=== PATIENT | female | born 1975 | race Caucasian/White ===

== ENCOUNTER 2017-07-30 12:07 | Emergency (ER) | payer BC, MEDICAID, OTHER ==
[~2017-07-30] VITALS: Ht 152.4 cm; Wt 69.5 kg
[2017-07-30 12:18] VITALS: Ht 152.4 cm; Wt 69.5 kg
[2017-07-30] MEDS ORDERED: ONDANSETRON (ODT) 4 MG TAB ODT STA (13:34)
[2017-07-30] MEDS ORDERED: IBUPROFEN 800 MG TAB PO ONE (14:00)
--- NOTE | 2017-07-30 14:46 | ERD ---
ER Documentation Chief Complaint Chief Complaint ABD PAIN X 5 DAYS WITH N/V HPI This is a 42-year-old female who presents the emergency department today complaining of lower pelvic pain and pressure and pain with urination. Denies any fevers or chills. States this is been going on for the past 5 days. Denies any vomiting but states she has nausea states she has also been having difficulty sleeping for the past week and she is unsure why. Denies any vaginal bleeding, vaginal discharge. ROS All systems reviewed and are negative except as per history of present illness. Medications Home Meds Active Scripts Ondansetron Hcl* (Zofran*) 4 Mg Tablet, 4 MG PO Q6H for NAUSEA AND/OR VOMITING, #30 TAB Prov:MARIA TERESA RAYA PA-C 07/30/17 Diphenhydramine Hcl* (Benadryl*) 25 Mg Cap, 25 MG PO Q6, #30 CAP Prov:MARIA TERESA RAYA PA-C 07/30/17 Ibuprofen* (Motrin*) 600 Mg Tab, 600 MG PO Q6, #30 TAB Prov:MARIA TERESA RAYA PA-C 07/30/17 Cephalexin* (Keflex*) 500 Mg Capsule, 500 MG PO QID for 7 Days, CAP Prov:MARIA TERESA RAYA PA-C 07/30/17 Reported Medications [None] No Conflict Check 01/22/11 Allergies Allergies: Coded Allergies: No Known Allergies (Verified Allergy, Mild, 04/05/13) Penicillins (Verified Allergy, Mild, 01/22/11) PMhx/Soc History of Surgery: Yes (C SECTION, 2004) Anesthesia Reaction: No Hx Neurological Disorder: No Hx Respiratory Disorders: No Hx Cardiac Disorders: No Hx Psychiatric Problems: No Hx Miscellaneous Medical Probl: No Hx Alcohol Use: No Hx Substance Use: No Hx Tobacco Use: No Smoking Status: Never smoker Physical Exam Vitals Vital Signs Date Time Temp Pulse Resp B/P Pulse Ox O2 Delivery O2 Flow Rate FiO2 07/30/17 12:18 99.9 113 18 125/77 99 Physical Exam Const: NAD Head: Atraumatic Eyes: Normal Conjunctiva ENT: Normal External Ears, Nose and Mouth. Neck: Full range of motion..~ No meningismus. Resp: Clear to auscultation bilaterally Cardio: Regular rate and rhythm, no murmurs Abd: Soft, suprapubic tenderness, non distended. Normal bowel sounds. No Tenderness to McBurney's and fine Skin: No petechiae or rashes Back: No midline or flank tenderness. No CVA tenderness Ext: No cyanosis, or edema Neur: Awake and alert Psych: Normal Mood and Affect Results 24 hrs Laboratory Tests Test 07/30/17 13:35 Urine Color YELLOW Urine Clarity CLOUDY Urine pH 6.0 Urine Specific [place] 1.009 Urine Ketones NEGATIVEmg/dL Urine Nitrite NEGATIVEmg/dL Urine Bilirubin NEGATIVEmg/dL Urine Urobilinogen NEGATIVEmg/dL Urine Leukocyte Esterase 3+Yousuf/ul Urine Microscopic RBC 5/HPF Urine Microscopic WBC > 182/HPF Urine Bacteria MANY/HPF Urine Hemoglobin 2+mg/dL Urine Glucose NEGATIVEmg/dL Urine Total Protein 2+mg/dl Current Medications Medications (Trade) Dose Ordered Sig/Iveth Route PRN Reason Start Time Stop Time Status Last Admin Dose Admin Ondansetron HCl (Zofran Odt) 4 mg ONCE STAT ODT 07/30/17 13:34 07/30/17 13:35 DC 07/30/17 13:50 Ibuprofen (Motrin) 800 mg ONCE ONCE PO 07/30/17 14:00 07/30/17 14:01 DC 07/30/17 13:50 Cephalexin (Keflex) 500 mg ONCE ONCE PO 07/30/17 15:00 07/30/17 15:01 DC Procedures/MDM This is a 42-year-old female who presents to the emergency department today complaining of pelvic pain and pressure with urination as well as insomnia. Had suprapubic tenderness on physical exam. She has had no vaginal bleeding or vaginal discharge and I do not feel that she requires further pelvic workup. I did obtain a UA test is negative. Low suspicion for ectopic , tubo-ovarian abscess, ovarian torsion. UA shows 3+ leukocyte esterase negative nitrates. Many bacteria and greater than 182 white blood cells. Patient is afebrile and otherwise well-appearing. She has no CVA tenderness. Low suspicion for pyelonephritis, nephrolithiasis Symptoms at this time is consistent with urinary tract infection. Urine was sent for culture. patient was given Zofran here in the emergency department as well as her first dose of Keflex. She will be given a prescription for Zofran, Motrin, Benadryl and Keflex for home At this time the patient is stable for discharge and outpatient management. Patient should follow up with their PCP in the next 1-2 days. They may return to the emergency department sooner for any persistent or worsening of symptoms. Patient understood and agreed with the plan. Departure Diagnosis: Primary Impression: UTI (urinary tract infection) Urinary tract infection type: site unspecified Hematuria presence: without hematuria Qualified Code: N39.0 - Urinary tract infection without hematuria, site unspecified Additional Impression: Insomnia Insomnia type: unspecified Qualified Code: G47.00 - Insomnia, unspecified type Condition: MARIA TERESA Yarbrough PA-C Jul 30, 2017 14:46
[2017-07-30] MEDS ORDERED: CEPHALEXIN 500 MG CAP PO ONE (15:00)
[2017-07-30] MEDS ORDERED: IBUP-1542 PO (15:05)
[2017-07-30] MEDS ORDERED: CEPH-443 PO (15:05)
[2017-07-30] MEDS ORDERED: BEN25 PO (15:07)
[2017-07-30] MEDS ORDERED: ONDA4TAB8 PO (15:11)
== END 2017-07-30 15:28 | disposition home or self-care (01) ==
LOC: FTE 12:07
DX: N39.0 Urinary tract infection, site not specified (principal); G47.00 Insomnia, unspecified
CPT/HCPCS: 81001; 87086; 99284